=== PATIENT | female | born 1960 | race Caucasian/White ===

== ENCOUNTER → 2023-03-11 23:00 | Outpatient (CLI) | payer OTHER, SELFPAY ==
[2023-03-12 11:20] LABS: Alanine Aminotransferase 41 U/L (12-78); Albumin Level 4.7 g/dl (3.5-5.0); Albumin/Globulin Ratio 1.8 (1.1-1.8); Alkaline Phosphatase 72 U/L (38-126); Aspartate Amino Transferase 32 U/L (14-36); Bilirubin,Total 0.4 mg/dl (0.2-1.3); Blood Urea Nitrogen 12 mg/dl (7-17); Calcium 9.8 mg/dl (8.4-10.2); Carbon Dioxide 28 mmol/L (22.0-30.0); Chloride 100 mmol/L (98-107); Chol/HDL Ratio 2.6 (1-3.5); Cholesterol 118 mg/dl (140-200); Estimated Glomerular Filt Rate 85 ml/min (>60); GFR (African American) 103 ML/MIN (>60); Globulin 2.6 g/dL (1.3-3.2); Glucose 88 mg/dl (74-100); HDL Cholesterol 46 mg/dl (40-60); Sodium 140 mmol/L (136-145); Total Protein,Serum 7.3 g/dl (6.3-8.2); Triglycerides 147 mg/dl (30-150); VLDL Cholesterol 29 mg/dL (0-40)
[2023-03-12 11:26] LABS: Hemoglobin A1C 5.3 % (4.0-6.0)
[2023-03-12 11:31] LABS: Direct LDL Cholesterol 50.94 mg/dL (100-129)
[2023-03-12 11:51] LABS: Thyroid Stimulating Hormone 2.21 uIU/mL (0.465-4.68)
[2023-03-12 12:51] LABS: Hemoglobin 14.7 g/dL (12.2-16.2); Mean Corpuscular Volume 86.3 fl (81-99); Red Blood Count 5.33 M/mm3 (4.20-5.40); White Blood Count 5.6 K/mm3 (4.8-10.8)
[2023-03-12 12:52] LABS: Basophils % 0.9 % (0.1-2.0); Eosinophils % 0.7 % (0.1-12.0); Lymphocytes % 45.6 % (10-50); Mean Corpuscular Hemoglobin 27.6 pg (27.0-31.2); Mean Platelet Volume 9.3 fl (7.4-10.4); Monocytes % 6.3 % (1.7-9.3); Neutrophils % 46.4 % (37.0-80.0); Platelet Count 283 K/mm3 (142-424); Red Cell Distribution Width 12.7 % (11.5-17.5)
[2023-03-12 12:53] LABS: Basophils # 0.1 K/mm3 (0-0.2); Lymphocytes # 2.6 K/mm3 (0.7-4.5); Monocytes # 0.4 K/mm3 (0.1-1.0); Neutrophils # 2.6 K/mm3 (1.8-7.8)
== END ==
PROVIDERS: PCP Nurse Practitioner; Visit Provider Nurse Practitioner
DX: E78.00 Pure hypercholesterolemia, unspecified (principal); I10 Essential (primary) hypertension; Z79.899 Other long term (current) drug therapy
CPT/HCPCS: 80053; 80061; 83036; 84443; 85025